=== PATIENT | male | born 1990 | race Two or more races ===

== ENCOUNTER 2021-06-19 15:30 | Emergency (ER) | payer OTHER ==
[~2021-06-19] VITALS: Ht 193 cm; Wt 99.8 kg
[2021-06-19] MEDS ORDERED: Morphine 4mg Syringe 4 MG/ML INJ IM ONE (16:00)
[2021-06-19] MEDS ORDERED: Morphine 4mg Syringe 4 MG/ML INJ ONE (16:04)
[2021-06-19] MEDS ORDERED: IBUPROFEN600 MG PO (17:33)
== END 2021-06-19 17:40 | disposition home or self-care (01) ==
LOC: FSED 15:36
DX: N50.811 Right testicular pain (principal)
CPT/HCPCS: 76870; 99283; J2270